=== PATIENT | female | born 1955 | race Caucasian/White ===

== ENCOUNTER 2017-08-23 13:59 | Emergency (ER) | payer OTHER ==
[~2017-08-23] VITALS: Ht 170.2 cm; Wt 56.7 kg
[2017-08-23] MEDS ORDERED: RESTORIL15 MG PO (14:49)
[2017-08-23] MEDS ORDERED: PROTONIX 20 MG20 M1 PO (14:49)
[2017-08-23] MEDS ORDERED: CELEXA20 MG PO (14:49)
[2017-08-23] MEDS ORDERED: RESTASIS1 EACH OPHTHALMIC (14:49)
[2017-08-23] MEDS ORDERED: IMITREX 50 MG T50 MG PO (14:50)
[2017-08-23] MEDS ORDERED: HYDROCODONE-AP1 EAC6 PO (15:49)
[2017-08-23 16:14] VITALS: BP 121/80
== END 2017-08-23 16:16 | disposition home or self-care (01) ==
LOC: ER 13:59
DX: S82.002A Unspecified fracture of left patella, initial encounter for closed fracture (principal); S01.512A Laceration without foreign body of oral cavity, initial encounter; F10.99 Alcohol use, unspecified with unspecified alcohol-induced disorder; Z88.1 Allergy status to other antibiotic agents; Z98.890 Other specified postprocedural states; W01.198A Fall on same level from slipping, tripping and stumbling with subsequent striking against other object, initial encounter; Y93.01 Activity, walking, marching and hiking; Y92.89 Other specified places as the place of occurrence of the external cause; Y99.8 Other external cause status

== ENCOUNTER → 2017-12-10 | Outpatient (CLI) | payer OTHER ==
[~2017-12-10] MED LIST: CELEXA20 MG PO; HYDROCODONE-AP1 EAC6 PO; IMITREX 50 MG T50 MG PO; PROTONIX 20 MG20 M1 PO; RESTASIS1 EACH OPHTHALMIC; RESTORIL15 MG PO
== END ==
LOC: RAD 08:36
DX: Z12.31 Encounter for screening mammogram for malignant neoplasm of breast (principal)

== ENCOUNTER → 2019-01-14 | Outpatient (CLI) | payer OTHER | LOC: RAD 08:27 | DX: K44.9 Diaphragmatic hernia without obstruction or gangrene (principal) ==

== ENCOUNTER → 2019-01-16 | Outpatient (CLI) | payer OTHER | LOC: RAD 02:01 | DX: Z12.31 Encounter for screening mammogram for malignant neoplasm of breast (principal) ==